=== PATIENT | male | born 1985 | race Caucasian/White ===

== ENCOUNTER 2021-05-14 14:21 | Emergency (ER) | payer OTHER, SELFPAY ==
[2021-05-14 14:21] VITALS: BP 181/102; PULSE 97; RESP 16; TEMP 36.3; O2SAT 97; BMI 80.0
--- NOTE | 2021-05-14 15:35 | EDS_ITS ---
HPI History of Present Illness Chief Complaint: Med Refill Narrative Narrative: Patient presenting with elevated blood pressure and requesting blood pressure medication. He states he feels otherwise fine. He has no headache, chest pain, palpitations, shortness of breath. He states he was able to work all day. He noted that he last used his hydrochlorothiazide 50 mg today and ran out. He thought he had a refill because he was seen 3 months ago and had refills every month. He did not realize he was not a patient of the practice. He went to the urgent care to try to get a refill on his blood pressure medication and they state that we will do that here. They sent him to the emergency room for refill. PFSH PFS Home Medications hydrochlorothiazide 50 mg PO QODAY #30 tab 05/14/21 [Rx Last Taken Unknown] Allergy/AdvReac Type Severity Reaction Status Date / Time No Known Allergies Allergy Verified 05/14/21 14:23 [facility] ED Constitutional Constitutional ED: Denies fever(s) or sweats Eyes Eyes: Denies blurry vision or diplopia ENT ENT ED: Denies ear pain or rhinorrhea Cardiovascular Cardiovascular: Denies chest pain or palpitations Respiratory/Chest Respiratory/Chest: Denies cough or dyspnea Gastrointestinal Gastrointestinal: Denies abdominal pain, nausea or vomiting Genitourinary Genitourinary ED: Denies dysuria or hematuria Musculoskeletal Musculoskeletal: Denies arthralgias or myalgias Integumentary Denies abscess or rash Neurologic Neurologic: Denies headache(s), paresthesias or weakness EXAM Physical Exam Const Vital Signs: 05/14/21 14:21 Temperature 97.3 F L Temperature Source Temporal Pulse Rate 97 Respiratory Rate 16 Blood Pressure 181/102 H Blood Pressure Mean 128 Pulse Ox 97 Oxygen Delivery Method Room Air Positive well nourished General Appearance ED: NAD; Negative for pallor HEENT Reports moist mucous membranes trauma Eyes PERRL and EOMs intact bilaterally Resp normal respiratory effort and clear to auscultation bilaterally Cardio regular rate and regular rhythm Extremity normal to inspection Neuro oriented x3 and CN's II-XII intact bilaterally Sensorium / Orientation: alert Psych mental status grossly normal Skin General Skin Exam: Negative for jaundice or pallor MDM MDM MDM Narrative Medical decision making narrative: Patient's blood pressure is slightly elevated today and he does admit to drinking a lot of caffeine today to get to work but he feels great. He states he was able to work all day. He just needs a refill on his blood pressure medication. He made a follow-up appointment with Dr. Caitlin Muhammad and has this in 2 weeks. I will provide him with a refill on his blood pressure medication. I counseled him to take a blood pressure diary at least morning and evening so that he can report this to Dr. Angelo on his visit so she can address any blood pressure issues that are still underlying. Patient acknowledged understanding. He is discharged home in stable condition. Impression: 1. Established hypertension 2. Medication Discharge Plan Triage Chief Complaint: Med Refill ED Provider: Raulito Michaels Dx/Rx/DC Orders Instructions: ED Hypertension, Established Prescriptions: New hydrochlorothiazide 50 mg tablet 50 mg PO QODAY Qty: 30 RF: 0 Referrals: Caitlin Muhammad MD [STAFF PHYSICIAN] - As soon as possible Disposition Disposition: Home, Self Care
== END 2021-05-14 15:49 | disposition home or self-care (01) ==
LOC: ED 15:45
PROVIDERS: Emergency Provider Student in an Organized Health Care Education/Training Program; PCP Internal Medicine
DX: I10 Essential (primary) hypertension (principal); Z76.0 Encounter for issue of repeat prescription; Z79.899 Other long term (current) drug therapy
CPT/HCPCS: 99282

== ENCOUNTER → 2022-08-07 | Outpatient (CLI) | payer OTHER, SELFPAY ==
[2022-08-07 12:36] LABS: Insulin 9.5 mU/L (2.6-37.6); Vitamin D,25 Hydroxy 24.5 ng/mL
[2022-08-07 12:43] LABS: AST(SGOT) 35 U/L (15-37); Alanine Aminotransfer ALT/SGPT 90 U/L (16-61); Albumin, Serum 3.7 g/dL (3.2-5.0); Alkaline Phosphatase 98 U/L (45-117); Anion Gap 6 (5-15); BUN 15 mg/dL (7-18); BUN/Creat Ratio 18.6 RATIO (10-20); Calcium,Total 8.7 mg/dL (8.5-10.1); Chloride 102 mmol/L (98-107); Cholesterol 233 mg/dL (200); Creatinine, Serum 0.81 mg/dL (0.70-1.30); EST Glomerular Filtration Rate 114 mL/min (>60); Est Glom Filt Rate - Afr Amer 138 mL/min (>60); Globulin 3.7 g/dL (2.2-4.2); Glucose 114 mg/dL (74-106); High Density Lipoprotein 56 mg/dL; Potassium 4.4 mmol/L (3.5-5.1); Protein, Total 7.4 g/dL (6.4-8.2); Sodium Level 134 mmol/L (136-145); Thyroid Stim Hormone (TSH) 0.85 uIU/mL (0.358-3.74); Triglycerides 69 mg/dL; Very Low Density Lipoprotein 14 mg/dL (5-40)
[2022-08-07 12:44] LABS: Absolute Lymphocyte Count 1.39 X10^3/uL (0.83-4.51); Absolute Neutrophil Count 2.9 X10^3/uL (2.0-7.7); Basophil# 0.04 X10^3/uL; Basophil% 0.8 % (0-1); Eosinophil# 0.17 X10^3/uL; Eosinophils% 3.3 % (0-5); Hematocrit 46.8 % (40-54); Hemoglobin A1c 5.2 % (3.8-5.6); Lymphocyte # 1.39 X10^3/ul (0.83-4.51); Mean Corp Hgb Conc 34.2 g/dL (32-36); Mean Corpuscular Hgb 29.2 pg (27.0-32.0); Mean Corpuscular Volume 85.4 fL (80-94); Mean Platelet Vol. 9.4 fl (6.2-12.0); Monocyte# 0.65 X10^3/uL; Monocyte% 12.6 % (0-10); NRBC Flagged by Analyzer 0 % (0-5); Neutrophil # 2.86 X10^3/uL (2.7-7.7); Neutrophil % 55.5 % (47-70); Platelet Count 264 K/mm3 (150-450); RBC Distribution Width SD 37.5 fl (35.1-43.9); Red Blood Count 5.48 M/mm3 (4.6-6.2); White Blood Count 5.2 K/mm3 (4.4-11.0)
== END | disposition home or self-care (01) ==
LOC: BIMLAB 10:04
PROVIDERS: PCP Internal Medicine; Referring Provider Internal Medicine; Visit Provider Internal Medicine
DX: E66.9 Obesity, unspecified (principal); F17.200 Nicotine dependence, unspecified, uncomplicated; I10 Essential (primary) hypertension; E78.5 Hyperlipidemia, unspecified; E55.9 Vitamin D deficiency, unspecified; E88.81 Metabolic syndrome and other insulin resistance
CPT/HCPCS: 36415; 80053; 80061; 82306; 83036; 83525; 84443; 85025

== ENCOUNTER → 2022-08-12 | Outpatient (CLI) | payer OTHER, SELFPAY ==
--- NOTE | 2022-08-12 10:35 | US_ITS ---
STUDY: ABDOMINAL ULTRASOUND - RIGHT UPPER QUADRANT REASON FOR VISIT: Male, 37 years old elevated LFTs. Fatty liver. TECHNIQUE: Ultrasound evaluation of the right upper quadrant was performed with real-time and static anton-scale imaging. TECHNICAL QUALITY: Examination limited by bowel gas. COMPARISON: None. FINDINGS: Liver: The liver measures 15.5 cm. There is a heterogeneous echogenicity of the liver. The bile ducts are within normal limits. There is hepatic color flow. The direction of portal flow is hepatopetal. There is a well-defined ovoid hypoechoic mass in the left liver adjacent to the gallbladder fossa consistent with focal fatty sparing. There is also a wall circumscribed hypodensity in the left liver adjacent to the portal hilum,, measuring 2.1 x 1.8 x 1.4 cm Gallbladder: Normal distended gallbladder. The gallbladder wall measures 1.2 mm. There is a negative sonographic Arroyo''s sign. There is no pericholecystic fluid. There are no gallstones. In the body of the gallbladder there is a 3 mm polyp. There is a valve versus subcentimeter polyp in the neck of the pancreas. Common Bile Duct (C.B.D.): The common bile duct measures 3.7 mm. Pancreas: Suboptimal visualization of pancreas. There is normal echogenicity of the visualized pancreas. There is no demonstrated pancreatic mass or cyst. Right Kidney: Normal size of the right kidney. The right kidney measures 10.3 cm. Normal renal cortex. The right cortex measures 1.5 cm. There is no demonstrated renal mass or cyst. There is no right hydronephrosis. US/Liver IMPRESSION: 1. Fatty infiltration of liver. There are well-defined hypoechoic foci in the left liver and adjacent to the gallbladder fossa which may represent masses or focal areas of focal fatty sparing. 2. Gallbladder polyps. 3. Otherwise normal right upper quadrant abdominal ultrasound. Electronically Signed: Deandre Anguiano DO at 20:14 [facility] Reading Location ID and State: [facility] / [place] Tel [phone], Service support ,
== END | disposition home or self-care (01) ==
PROVIDERS: PCP Internal Medicine; Visit Provider Internal Medicine
DX: R79.89 Other specified abnormal findings of blood chemistry (principal)
CPT/HCPCS: 76705

== ENCOUNTER 2024-05-27 19:13 | Emergency (ER) | payer OTHER, SELFPAY ==
[2024-05-27 19:14] VITALS: BP 155/99; PULSE 111; RESP 21; TEMP 37.1; O2SAT 99; BMI 33.9
--- NOTE | 2024-05-27 19:25 | EKG12_ITS ---
Test Reason : DYSRHYTHMIA Blood Pressure : */* mmHG Vent. Rate : 108 BPM Atrial Rate : 108 BPM P-R Int : 162 ms QRS Dur : 88 ms QT Int : 330 ms P-R-T Axes : 64 52 30 degrees QTcB Int : 442 ms Sinus tachycardia Otherwise normal ECG Confirmed by DIAMANTE JENNINGS, GISSEL ([id number]), loan expeditor [place] ANDREWS ([id number]) on 05/29/2024 2:17:32 PM Referred By: OVI Confirmed By: GISSEL BOBBY MD
--- NOTE | 2024-05-27 19:29 | ED.RN ---
NO OLD EKG
--- NOTE | 2024-05-27 19:30 | RAD_ITS ---
INDICATION: chest pain EXAMINATION/TECHNIQUE: X-RAY - XR Chest 1 View COMPARISON: None. FINDINGS: The lungs are clear. The cardiomediastinal silhouette is unremarkable. No pleural effusion or pneumothorax. No acute osseous abnormalities. RAD/Chest 1 View (Portable) IMPRESSION: No acute radiographic abnormalities. Electronically Signed: Richie Sky MD at 21:04 EST ,
[2024-05-27 19:35] LABS: Absolute Lymphocyte Count 1.94 X10^3/uL (0.83-4.51); Absolute Neutrophil Count 6.8 X10^3/uL (2.0-7.7); Basophil# 0.08 X10^3/uL; Basophil% 0.8 % (0-1); Eosinophil# 0.22 X10^3/uL; Eosinophils% 2.1 % (0-5); Lymphocyte # 1.94 X10^3/ul (0.83-4.51); Lymphocyte % 18.8 % (19-41); Mean Corp Hgb Conc 35.4 g/dL (32-36); Mean Corpuscular Hgb 28.6 pg (27.0-32.0); Mean Corpuscular Volume 80.8 fL (80-94); Monocyte# 1.16 X10^3/uL; Monocyte% 11.2 % (0-10); NRBC Flagged by Analyzer 0 % (0-5); Neutrophil # 6.82 X10^3/uL (2.7-7.7); Neutrophil % 65.9 % (47-70); Platelet Count 347 K/mm3 (150-450); RBC Distribution Width CV 12.2 % (11.6-14.6); RBC Distribution Width SD 35.8 fl (35.1-43.9); Red Blood Count 5.94 M/mm3 (4.6-6.2); White Blood Count 10.3 K/mm3 (4.4-11.0)
--- NOTE | 2024-05-27 19:35 | ED.VIS.CHEST ---
HPI History of Present Illness Chief Complaint: Palpitations Informant: patient Onset/Context/Timing Onset: Today and Hours Timing: Continuous Narrative Narrative: 39-year-old male works third shift. History of hypertension on lisinopril hydrochlorothiazide. States that he slept woke up today around 2 PM that is when he normally wakes up after working overnight. And noticed that he had an accelerated heart rate. Denies chest pain or shortness of breath. Denies abdominal pain. Denies nausea, vomiting or diarrhea. Said he has not recently been sick. Denies fever, hair loss or weight loss. Denies any cardiac history. No history of DVT or PE or risk factors. No leg pain or swelling. Prior Similar Symptoms: No Recent Illness/Hospitalization: No CVD Risk Factors: Positive for Hypertension; Negative for Diabetes PE Risk Factors: Negative for Recent Travel/Surgery, Recent Immobilization, Prior DVT or PE, Cancer or OCP + Smoking + >/=35 TAD Risk Factors: Negative for Marfan's Syndrome [facility] Medical History Rash and nonspecific skin eruption Encounter for wellness examination Acute maxillary sinusitis, unspecified Back problem Hyperlipemia Hypertension Home Medications ?Medication ?Instructions ?Recorded ?Last Taken ?Type cholecalciferol (vitamin D3) 25 25 mcg PO .COMPLEX 05/09/23 Unknown History mcg (1,000 unit) capsule lisinopril 20 1 tab PO DAILY #90 tabs 12/20/23 Unknown Rx mg-hydrochlorothiazide 25 mg tablet acetaminophen 325 mg tablet 650 mg PO Q6H PRN Pain/fever 02/13/24 Unknown History (Tylenol) ibuprofen 800 mg tablet 800 mg PO TID PRN pain/fever 02/13/24 Unknown History omeprazole 20 mg capsule,delayed 20 mg PO DAILY PRN Take only if 02/20/24 Unknown Rx release needed for heartburn. #60 caps terbinafine HCl 1 % topical cream 1 applic topical BID PRN rash 05/27/24 Unknown History Allergy/AdvReac Type Severity Reaction Status Date / Time No Known Allergies Allergy Verified 05/27/24 19:15 Family History Grandfather Cancer Hypertension Grandmother Cancer Mother Myocardial infarction, Onset Age: 62 Diabetes Social History Smoking Status: Current every day smoker tobacco type: cigarettes Tobacco: How many years used: 19 alcohol intake: current alcohol intake frequency: a few times a week substance use type: does not use what type of physical activity do you participate in: none ROS ROS ED ROS Narrative Denies recent illness. Palpitations today. Denies fever. Denies weight loss. Denies hair loss. Denies vomiting or diarrhea. Constitutional Constitutional ED: Denies chills or fever(s) Eyes Eyes: Reports none ENT ENT ED: Denies ear pain Cardiovascular Cardiovascular: Reports as per HPI and palpitations; Denies chest pain Respiratory/Chest Respiratory/Chest: Denies cough or dyspnea Gastrointestinal Gastrointestinal: Denies abdominal pain or constipation Genitourinary Genitourinary ED: Denies dysuria or hematuria Musculoskeletal Musculoskeletal: Denies arthralgias or back pain Integumentary Denies abscess Neurologic Neurologic: Denies headache(s) Psychiatric Psychiatric: Denies anxiety Endocrine Endocrinology: Denies cold intolerance Hematologic/Lymphatic Hematologic/Lymphatic: Denies easy bleeding, easy bruising or lymphadenopathy Allergic/Immunologic Allergic/Immunologic ED: Denies mouth swelling, tongue swelling or urticaria EXAM Physical Exam Narrative Exam Narrative: Well-appearing 39-year-old male vital signs are stable afebrile. Pulse ox 9 9% on room air no hypoxia. H EENT exam unremarkable. Pupils round reactive light. No droop. Normal speech. Neck nontender no JVD. No lymphadenopathy. Lungs clear to auscultation bilaterally. Heart regular rhythm rate about 103 no murmur. Chest wall and ribs nontender. Abdomen soft nontender. 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 Normal dorsi plantarflexion. Calves are nontender without edema. Back nontender. He is awake and alert. No focal motor deficits. Benign exam. Const Vital Signs: 05/27/24 19:14 05/27/24 19:19 05/27/24 19:25 Temperature 98.8 F Temperature Source Oral Pulse Rate 111 H Respiratory Rate 21 H Respiratory Effort Normal Blood Pressure 155/99 H Blood Pressure Mean 117 Pulse Ox 99 Oxygen Delivery Method Room Air Room Air Positive well nourished and well developed; Negative for cachectic, contractures or unkempt General Appearance ED: well developed and NAD; Negative for unkempt, cachectic, contractures or pallor Nutritional Appearance: Negative for cachectic HEENT Reports moist mucous membranes normocephalic and atraumatic; Negative for trauma or tenderness Eyes PERRL and EOMs intact bilaterally General Eye ED: Negative for pale conjunctiva or scleral icterus Neck no lymphadenopathy, supple and no JVD General: Negative for tenderness Chest Wall inspection of chest normal and palpation of chest normal Chest: Negative for tenderness Resp normal respiratory effort and clear to auscultation bilaterally Effort and Inspection: Negative for respiratory distress Auscultation: Negative for rales, rhonchi, wheezes or diminished lung sounds Cardio regular rhythm, S1 normal heart sound, S2 normal heart sound and no murmurs; Negative for regular rate Rate: tachycardic Peripheral Pulses: pulses 2+ throughout GI normal to inspection, nondistended, normoactive bowel sounds, soft to palpation, non-tender, non-distended and no masses Back/Spine no CVA tenderness and no thoracic nor lumbar tenderness Extremity normal to inspection General Extremety ED: Negative for edema, pulses abnormal or tenderness General Extremity: Negative for edema or pulses abnormal Neuro oriented x3 and CN's II-XII intact bilaterally Sensorium / Orientation: awake, alert, oriented to person, oriented to place and oriented to time; Negative for confused, lethargic or stuporous Motor Exam: strength 5/5 throughout Psych mental status grossly normal Appearance: Negative for unkempt Attitude: No agitated Mood & Affect: Negative for depressed, anxious or tearful Skin no rashes or lesions noted and no wounds General Skin Exam: Negative for jaundice or pallor Rashes: No rashes noted Trauma: Negative for abrasion or laceration MDM MDM MDM Narrative Medical decision making narrative: 39-year-old gentleman with palpitations today. Exam benign. Undergo a cardiac workup. He has no risk factors or history of DVT or PE and no physical findings. No recent travel, surgery immobilization. Repeat exam patient is doing well at 8:09 PM. We discussed all his test results. On repeat exam patient is doing well. Blood pressure is 138/87. Heart rates in the 90s. Patient states that the only thing he can think of his his mom was up today visiting her house and medically she is not doing well and that may have caused him stress. History & Record Review Discussion w/independent historian: Patient Lab Data Attestation: I reviewed the patient's lab results. Lab results narrative: CBC unremarkable. White count of 10. H&H 17 and 48. Platelets 347. Electrolytes show sodium 130. Potassium 3.4. Gap 11. Normal BUN 9 creatinine 0.8. Glucose 112. Troponin 12. TSH normal 1.4. Chest x-ray unremarkable. Labs: Laboratory Results - last 24 hr 05/27/24 19:22 WBC 10.3 RBC 5.94 Hgb 17.0 H Hct 48.0 MCV 80.8 MCH 28.6 MCHC 35.4 RDW Std Deviation 35.8 RDW Coeff of Ben 12.2 Plt Count 347 MPV 9.0 Immature Gran % (Auto) 1.200 H Neut % (Auto) 65.9 Lymph % (Auto) 18.8 L [place] % (Auto) 11.2 H Eos % (Auto) 2.1 Baso % (Auto) 0.8 Absolute Neuts (auto) 6.8 Absolute Lymphs (auto) 1.94 Nucleated RBC % 0 Sodium 130 L Potassium 3.4 L Chloride 92 L Carbon Dioxide 27.0 Anion Gap 11 BUN 9 Creatinine 0.81 Estim Creat Clear Calc 132.31 Est GFR (MDRD) Af Amer 137 Est GFR (MDRD) Non-Af 113 BUN/Creatinine Ratio 11.1 Glucose 112 H Calcium 9.4 Troponin I High Sens 12 TSH 1.430 Radiography Chest X-Ray - ED: 1 View, Read by ED Physician, Heart, Lungs, Mediastinum, Bony Structures, No Acute Disease and Chronic Changes Diagnostic Testing: Chest x-ray, portable, single view interpreted by myself shows normal cardiac silhouette. Normal lung littlejohn. No infiltrates or effusions. Rhythm Strip Rate: 108 Ectopy: None EKG Initial EKG: Attestation: I personally reviewed and interpreted this EKG as follows: Interpretation: No Acute Injury Pattern and Sinus Tachycardia Comments: Sinus tachycardia rate of 108 no acute signs of IL or ischemia. Discharge Plan Triage Chief Complaint: Palpitations ED Provider: Neo Guzman Dx/Rx/DC Orders Clinical Impression: Heart palpitations, History of hypertension Instructions: ED Palpitations Prescriptions: No Action ibuprofen 800 mg tablet 800 mg PO TID PRN (Reason: pain/fever) acetaminophen [Tylenol] 325 mg tablet 650 mg PO Q6H PRN (Reason: Pain/fever) terbinafine HCl 1 % cream 1 applic topical BID PRN (Reason: rash) Rx Instructions: Apply to affected areas twice daily for 14 days. cholecalciferol (vitamin D3) 25 mcg (1,000 unit) capsule 25 mcg PO .COMPLEX Rx Instructions: 25 mcg orally 3x week; lisinopril-hydrochlorothiazide 20-25 mg tablet 1 tab PO DAILY Qty: 90 3RF omeprazole 20 mg capsule,delayed release(DR/EC) 20 mg PO DAILY PRN (Reason: Take only if needed for heartburn.) Qty: 60 1RF Primary Care Provider: Caitlin Muhammad Referrals: Caitlin Muhammad MD [Primary Care Provider] - 3-5 Days if not improving Activity Restrictions/Additional Instructions: Follow-up with your doctor as needed. Return if you are feeling worse. Your exam is unremarkable. Your EKG and chest x-ray look good. Your sodium was just barely low at 130. That should improve. Print Language: Slovak Disposition Disposition: Home, Self Care
[2024-05-27 20:00] LABS: Anion Gap 11 (5-15); BUN 9 mg/dL (7-18); BUN/Creat Ratio 11.1 RATIO (10-20); Calcium,Total 9.4 mg/dL (8.5-10.1); Chloride 92 mmol/L (98-107); Creatinine, Serum 0.81 mg/dL (0.70-1.30); EST Glomerular Filtration Rate 113 mL/min (>60); Est Glom Filt Rate - Afr Amer 137 mL/min (>60); Estimated Creatinine Clearance 132.31 ml/min; Glucose 112 mg/dL (74-106); Potassium 3.4 mmol/L (3.5-5.1); Sodium Level 130 mmol/L (136-145); Troponin-I HS 12 pg/mL (3.0-78.0)
[2024-05-27 20:18] VITALS: BP 130/74; PULSE 98; RESP 18; TEMP 36.6; O2SAT 95
== END 2024-05-27 20:19 | disposition home or self-care (01) ==
PROVIDERS: Emergency Provider Emergency Medicine; PCP Internal Medicine; Visit Provider Emergency Medicine
DX: R00.2 Palpitations (principal); I10 Essential (primary) hypertension; F17.210 Nicotine dependence, cigarettes, uncomplicated; Z79.899 Other long term (current) drug therapy
CPT/HCPCS: 71045; 80048; 84443; 84484; 85025; 93005; 99285